=== PATIENT | female | born 1990 | race Caucasian/White ===

== ENCOUNTER 2017-07-21 19:14 | Emergency (ER) | payer OTHER ==
[~2017-07-21] VITALS: Ht 170.2 cm; Wt 113.4 kg
[2017-07-21 19:38] VITALS: BP 136/61
--- NOTE | 2017-07-21 21:34 | NUR ---
Patient ambulated to bed 05.
--- NOTE | 2017-07-21 21:39 | NUR ---
PATIENT IS A 26 Y/O FEMALE WHO PRESENTS TO THE ED C/O OF MEDIAL ABDOMINAL PAIN. PT STATES THAT IT STARTED TWO HOURS AGO. PT STATES A SHARP, 8/10, NONRADIATING PAIN. PT REPORT NAUSEA X2 HOURS, DENIES V/D. PT AAOX4, RR EVEN/UNLABORED. BED REPOSITIONED FOR COMFORT, BED PUT IN LOWEST POSITION. ER MD DR. CHÁVEZ NOTIFIED. WILL CONTINUE TO MONITOR.
[2017-07-21] MEDS ORDERED: LIDOCAINE VISCOUS 2% 20 ML UDC PO ONE (22:15)
[2017-07-21] MEDS ORDERED: DICYCLOMINE HCL LIQUID 10 MG/5 ML UDC PO ONE (22:15)
[2017-07-21] MEDS ORDERED: ALUMINUM HYD/MAG/SIMETHICONE 30 ML UDC PO ONE (22:15)
[2017-07-21 23:09] VITALS: BP 135/67
--- NOTE | 2017-07-21 23:09 | NUR ---
Patient discharged with v/s stable. Written and verbal after care instructions given and explained. Patient alert, oriented and verbalized understanding of instructions. Ambulatory with steady gait. All questions addressed prior to discharge. ID band removed. Patient advised to follow up with PMD. Rx of OMEPRAZOLE 40 MG given. Patient educated on indication of medication including possible reaction and side effects. Opportunity to ask questions provided and answered.
== END 2017-07-21 23:09 | disposition home or self-care (01) ==
LOC: MED 19:14
DX: K29.70 Gastritis, unspecified, without bleeding (principal); R03.0 Elevated blood-pressure reading, without diagnosis of hypertension
CPT/HCPCS: 81002; 81025; 99283

== ENCOUNTER 2021-01-18 13:20 | Emergency (ER) | payer OTHER ==
[~2021-01-18] VITALS: Ht 170.2 cm; Wt 108.9 kg
[2021-01-18 13:31] VITALS: BP 128/74
[2021-01-18] MEDS ORDERED: KETOROLAC 60 MG/2 ML VIAL IM ONE (14:15)
[2021-01-18] MEDS ORDERED: METH750T5 PO (15:05)
[2021-01-18] MEDS ORDERED: NAPR-54 PO (15:05)
[2021-01-18 16:37] VITALS: BP 128/74
== END 2021-01-18 16:37 | disposition home or self-care (01) ==
LOC: MED 13:20
DX: S13.4XXA Sprain of ligaments of cervical spine, initial encounter (principal); Z79.899 Other long term (current) drug therapy; V49.9XXA Car occupant (driver) (passenger) injured in unspecified traffic accident, initial encounter; Y93.89 Activity, other specified; Y92.89 Other specified places as the place of occurrence of the external cause; Y99.8 Other external cause status
CPT/HCPCS: 71045; 72050; 72072; 81002; 81025; 96372; 99284; J1885; 99285